=== PATIENT | male | born 1945 | race Caucasian/White ===

== ENCOUNTER → 2019-04-11 09:14 | Outpatient (CLI) | payer MEDICARE, OTHER, SELFPAY ==
[2016-11-19 09:01] VITALS: BMI 25.4
[2019-04-11 12:29] LABS: CRP < 2.90 mg/L (0.0-3.0); Erythrocyte Sedimentation Rate 7 mm/hr (0-20); Rheumatoid Factor < 10.0 IU/mL (<15)
[2019-04-11 12:42] LABS: Absolute Neutrophil Count 5.6 X10^3/uL (2.0-7.7); Basophil# 0.01 X10^3/uL; Basophil% 0.1 % (0-1); Eosinophil# 0.18 X10^3/uL; Eosinophils% 2.3 % (0-5); Hematocrit 47.5 % (40-54); Hemoglobin 15.1 g/dL (13.0-16.5); Lymphocyte % 17.9 % (19-41); Mean Corp Hgb Conc 31.8 g/dL (32-36); Mean Corpuscular Hgb 27.7 pg (27.0-32.0); Mean Corpuscular Volume 87.2 fL (80-94); Mean Platelet Vol. 10.9 fl (6.2-12.0); Monocyte# 0.62 X10^3/uL; Monocyte% 7.9 % (0-10); NRBC Flagged by Analyzer 0 % (0-5); Neutrophil # 5.58 X10^3/uL (2.7-7.7); Neutrophil % 71.5 % (47-70); Platelet Count 272 K/mm3 (150-450); RBC Distribution Width CV 13.4 % (11.6-14.6); RBC Distribution Width SD 42.7 fl (35.1-43.9); Red Blood Count 5.45 M/mm3 (4.6-6.2); White Blood Count 7.8 K/mm3 (4.4-11.0)
[2019-04-13 15:43] LABS: Anti-Nuclear Antibody Test Negative (.)
[2019-04-17 16:07] LABS: Cytoplasmic Ab (C-ANCA) <1:20 titer (Neg:<1:20); QNTFERON TB Mitogen Value > 10.00 IU/mL (.); QNTFERON TB1+ Ag Value 0.09 IU/mL (.); QNTFERON TB2+ Ag Value 0.08 IU/mL (.)
[2019-04-17 20:08] LABS: Angiotensin Convert Enzyme 44 U/L (14-82); HLA B27 Negative (.); Perinuclear Ab (P-ANCA) <1:20 titer (Neg:<1:20); QNTIFERON TB Positive Criteria Negative (Negative)
== END ==
PROVIDERS: Family Provider Family Medicine; PCP Family Medicine; Referring Provider Ophthalmology; Visit Provider Ophthalmology
DX: H15.099 Other scleritis, unspecified eye (principal)
CPT/HCPCS: 36415; 81374; 82164; 85025; 85652; 86038; 86140; 86256; 86431; 86480

== ENCOUNTER → 2023-12-01 | Outpatient (CLI) | payer MEDICARE, OTHER, SELFPAY ==
--- NOTE | 2023-12-01 13:34 | RAD_ITS ---
STUDY: X-RAY - SOFT TISSUE NECK REASON FOR EXAM: Male, 77 years old. hoarseness, difficulty swallowing TECHNIQUE: 2 view(s) of the neck were obtained. COMPARISON: None. FINDINGS: Normal visualized nasopharynx, oropharynx, hypopharynx. Normal epiglottis. Normal visualized subglottic tracheal air column. Normal prevertebral soft tissue structures. Normal visualized osseous structures. The soft tissue structures are unremarkable. RAD/Neck for Soft Tissue IMPRESSION: Normal x-ray soft tissue neck. Electronically Signed: George Bishop MD at 8:55 EDT ,
[2023-12-01 15:37] LABS: Erythrocyte Sedimentation Rate 11 mm/hr (0-20)
[2023-12-01 15:39] LABS: Absolute Lymphocyte Count 1.44 X10^3/uL (0.83-4.51); Absolute Neutrophil Count 7.4 X10^3/uL (2.0-7.7); Basophil# 0.01 X10^3/uL; Basophil% 0.1 % (0-1); Eosinophil# 0.24 X10^3/uL; Eosinophils% 2.4 % (0-5); Hematocrit 42.6 % (40-54); Hemoglobin 13.7 g/dL (13.0-16.5); Lymphocyte # 1.44 X10^3/ul (0.83-4.51); Lymphocyte % 14.2 % (19-41); Mean Corp Hgb Conc 32.2 g/dL (32-36); Mean Corpuscular Hgb 27.6 pg (27.0-32.0); Mean Corpuscular Volume 85.7 fL (80-94); Mean Platelet Vol. 11.6 fl (6.2-12.0); Monocyte# 1.01 X10^3/uL; NRBC Flagged by Analyzer 0 % (0-5); Neutrophil # 7.42 X10^3/uL (2.7-7.7); Platelet Count 258 K/mm3 (150-450); RBC Distribution Width CV 13.2 % (11.6-14.6); RBC Distribution Width SD 41.4 fl (35.1-43.9); Red Blood Count 4.97 M/mm3 (4.6-6.2); White Blood Count 10.2 K/mm3 (4.4-11.0)
[2023-12-01 15:50] LABS: ALB/GLOB Ratio 0.9 RATIO (0.9-2.4); AST(SGOT) 16 U/L (15-37); Alanine Aminotransfer ALT/SGPT 15 U/L (16-61); Albumin, Serum 3.5 g/dL (3.2-5.0); Alkaline Phosphatase 93 U/L (45-117); Anion Gap 3 (5-15); BUN 24 mg/dL (7-18); BUN/Creat Ratio 24.7 RATIO (10-20); Calcium,Total 9.4 mg/dL (8.5-10.1); Chloride 109 mmol/L (98-107); Creatinine, Serum 0.97 mg/dL (0.70-1.30); EST Glomerular Filtration Rate 79 mL/min (>60); Est Glom Filt Rate - Afr Amer 96 mL/min (>60); Glucose 99 mg/dL (74-106); Potassium 4.8 mmol/L (3.5-5.1); Protein, Total 7.5 g/dL (6.4-8.2); Sodium Level 139 mmol/L (136-145); Thyroid Stim Hormone (TSH) < 0.01 uIU/mL (0.358-3.74)
[2023-12-02 08:59] LABS: T4 Free Direct 2.47 ng/dL (0.76-1.46)
== END | disposition home or self-care (01) ==
PROVIDERS: PCP Family Medicine; Referring Provider Family Medicine; Visit Provider Family Medicine
DX: R49.0 Dysphonia (principal); Z13.29 Encounter for screening for other suspected endocrine disorder; R39.12 Poor urinary stream; R63.4 Abnormal weight loss
CPT/HCPCS: 36415; 70360; 80053; 84153; 84439; 84443; 85025; 85652

== ENCOUNTER → 2023-12-06 | Outpatient (CLI) | payer MEDICARE, OTHER, SELFPAY ==
[2023-12-08 08:13] LABS: Thyroid Peroxidase AB 10 IU/mL (0-34)
== END | disposition home or self-care (01) ==
LOC: MFPLAB 11:51
PROVIDERS: PCP Family Medicine; Visit Provider Family Medicine
DX: E05.90 Thyrotoxicosis, unspecified without thyrotoxic crisis or storm (principal)
CPT/HCPCS: 36415; 86376

== ENCOUNTER → 2023-12-08 | Outpatient (CLI) | payer MEDICARE, OTHER, SELFPAY ==
--- NOTE | 2023-12-08 13:50 | US_ITS ---
EXAM: US SOFT TISSUES HEAD AND NECK, THYROID CLINICAL INDICATION: THYROTOXICOSIS TECHNIQUE: Greyscale and color doppler imaging was performed of the thyroid gland. COMPARISON: No relevant prior studies available. FINDINGS: LEFT THYROID LOBE: Left lobe of the thyroid is diffusely heterogeneous. Solid nodule measuring 14 x 8 x 6 mm left lobe of the thyroid is hypoechoic, wider than tall, smooth, without echogenic foci. Solid nodule measuring 7 x 7 x 4 mm left lobe of the thyroid is hypoechoic, wider than tall, smooth, without echogenic foci. Solid nodule measuring 5 x 5 x 3 mm left lobe of the thyroid is isoechoic, wider than tall, smoothly, without echogenic foci. The left lobe of the thyroid lobe measures 4.6 x 1.9 x 1.5 cm. RIGHT THYROID LOBE: The right lobe of the thyroid is diffusely heterogeneous. Solid nodule measuring 8 x 7 x 5 mm right lobe of the thyroid is hypoechoic, wider than tall, smooth, without echogenic foci. Cystic nodule measuring 7 x 7 x 5 mm right lobe of the thyroid. Solid nodule measuring 11 x 10 x 7 mm right lobe of the thyroid is hypoechoic, wider than tall, smoothly, without echogenic foci. The right lobe of the thyroid lobe measures 4.7 x 2.5 x 1.8 cm. ISTHMUS: Unremarkable. No thyroid nodules are present. The isthmus measures 0.3 cm in thickness. US/Thyroid IMPRESSION: 1. Solid nodule measuring 8 x 7 x 5 mm right lobe of the thyroid is hypoechoic, wider than tall, smooth, without echogenic foci. TI-RADS points: 4. TI-RADS category: TR4. This nodule is moderately suspicious but no FNA or follow-up is necessary given the small size of this nodule. 2. Cystic nodule measuring 7 x 7 x 5 mm right lobe of the thyroid. TI-RADS points: 0. TI-RADS category: TR1. This nodule is benign and no FNA or follow-up is necessary. 3. Solid nodule measuring 11 x 10 x 7 mm right lobe of the thyroid is hypoechoic, wider than tall, smoothly, without echogenic foci. TI-RADS points: 4. TI-RADS category: TR4. This nodule is moderately suspicious. Recommend follow-up thyroid ultrasounds at 1, 2, 3 and 5 years. 4. Solid nodule measuring 14 x 8 x 6 mm left lobe of the thyroid is hypoechoic, wider than tall, smooth, without echogenic foci. TI-RADS points: 4. TI-RADS category: TR4. This nodule is moderately suspicious. Recommend follow-up thyroid ultrasounds at 1, 2, 3 and 5 years. 5. Solid nodule measuring 7 x 7 x 4 mm left lobe of the thyroid is hypoechoic, wider than tall, smooth, without echogenic foci. TI-RADS points: 4. TI-RADS category: TR4. This nodule is moderately suspicious but no FNA or follow-up is necessary given the small size of this nodule. 6. Solid nodule measuring 5 x 5 x 3 mm left lobe of the thyroid is isoechoic, wider than tall, smoothly, without echogenic foci. TI-RADS points: 3. TI-RADS category: TR3. This nodule is mildly suspicious but no FNA or follow-up is necessary given the small size of this nodule. Electronically Signed: Antonio Costa MD at 1:29 EDT ,
== END | disposition home or self-care (01) ==
LOC: US 13:47
PROVIDERS: PCP Family Medicine; Referring Provider Family Medicine; Visit Provider Family Medicine
DX: E05.90 Thyrotoxicosis, unspecified without thyrotoxic crisis or storm (principal)
CPT/HCPCS: 76536

== ENCOUNTER → 2023-12-14 | Outpatient (CLI) | payer MEDICARE, OTHER, SELFPAY ==
--- NOTE | 2023-12-14 08:50 | NM_ITS ---
CLINICAL: Male, 77 years old. Thyrotoxicosis, unspecified without thyrotoxic crisis or storm THYROID IMAGING STUDY TECHNIQUE: The patient was administered a 279 uCi I-123 capsule by mouth. COMPARISON STUDIES : NM - None. CR - Not available for review at this time. CT - Not available for review at this time. MR - Not available for review at this time. - 12/08/2023 FINDINGS: The 4 I-123 radioactive iodine thyroidal uptake was calculated to be 55.8% (normal 5 to 25 %). The 24-hour I-123 radioactive iodine thyroidal uptake was calculated to be 87.8% (normal 5 to 40 %). The I-123 thyroid scan demonstrates homogeneous radiopharmaceutical concentration throughout both lobes of a U-shaped thyroid gland. There are no colloidal parenchymal nodules noted in either lobe of the thyroid gland. NM/Thyroid Uptake Single or Mult IMPRESSION: Graves'' disease. Electronically Signed: George Bishop MD at 8:57 EDT ,
== END | disposition home or self-care (01) ==
LOC: NM 08:43
PROVIDERS: PCP Family Medicine; Referring Provider Family Medicine; Visit Provider Family Medicine
DX: E05.90 Thyrotoxicosis, unspecified without thyrotoxic crisis or storm (principal)
CPT/HCPCS: 78012; A9516

== ENCOUNTER → 2024-01-20 | Outpatient (CLI) | payer MEDICARE, OTHER, SELFPAY ==
[2024-01-20 18:17] LABS: Free T3 4.1 pg/mL (2.18-3.98); T4 Free Direct 1.39 ng/dL (0.76-1.46); Thyroid Stim Hormone (TSH) < 0.005 uIU/mL (0.358-3.740)
== END | disposition home or self-care (01) ==
PROVIDERS: PCP Family Medicine; Referring Provider Nurse Practitioner Family; Visit Provider Nurse Practitioner Family
DX: E05.00 Thyrotoxicosis with diffuse goiter without thyrotoxic crisis or storm (principal)
CPT/HCPCS: 36415; 84439; 84443; 84481

== ENCOUNTER → 2024-01-28 | Outpatient (CLI) | payer MEDICARE, OTHER, SELFPAY | END | disposition home or self-care (01) | LOC: LAB 16:34 | PROVIDERS: PCP Family Medicine; Referring Provider Surgery; Visit Provider Surgery | DX: E05.90 Thyrotoxicosis, unspecified without thyrotoxic crisis or storm (principal); E83.51 Hypocalcemia | CPT/HCPCS: 36415; 82306 ==

== ENCOUNTER → 2024-02-15 | Outpatient (CLI) | payer MEDICARE, OTHER, SELFPAY ==
[2024-02-15 11:27] LABS: ALB/GLOB Ratio 0.9 RATIO (0.9-2.4); AST(SGOT) 14 U/L (15-37); Alanine Aminotransfer ALT/SGPT 22 U/L (16-61); Albumin, Serum 3.5 g/dL (3.2-5.0); Alkaline Phosphatase 104 U/L (45-117); Anion Gap 7 (5-15); BUN 26 mg/dL (7-18); BUN/Creat Ratio 22.6 RATIO (10-20); Calcium,Total 9.5 mg/dL (8.5-10.1); Chloride 105 mmol/L (98-107); Creatinine, Serum 1.15 mg/dL (0.70-1.30); EST Glomerular Filtration Rate 65 mL/min (>60); Est Glom Filt Rate - Afr Amer 79 mL/min (>60); Free T3 3.2 pg/mL (2.18-3.98); Globulin 3.9 g/dL (2.2-4.2); Glucose 156 mg/dL (74-106); Potassium 3.5 mmol/L (3.5-5.1); Protein, Total 7.4 g/dL (6.4-8.2); Sodium Level 139 mmol/L (136-145); T4 Free Direct 0.99 ng/dL (0.76-1.46); Thyroid Stim Hormone (TSH) < 0.005 uIU/mL (0.358-3.740)
== END | disposition home or self-care (01) ==
LOC: MTLAB 08:44
PROVIDERS: PCP Family Medicine; Referring Provider Nurse Practitioner Family; Visit Provider Nurse Practitioner Family
DX: I10 Essential (primary) hypertension (principal); E05.90 Thyrotoxicosis, unspecified without thyrotoxic crisis or storm
CPT/HCPCS: 36415; 80053; 84439; 84443; 84481

== ENCOUNTER 2024-03-21 12:07 | Observation (INO) | payer MEDICARE, OTHER, SELFPAY ==
--- NOTE | 2024-03-09 13:16 | EKG12_ITS ---
Test Reason : PREOP Blood Pressure : */* mmHG Vent. Rate : 71 BPM Atrial Rate : 71 BPM P-R Int : 178 ms QRS Dur : 94 ms QT Int : 380 ms P-R-T Axes : 9 25 47 degrees QTcB Int : 412 ms Normal sinus rhythm Normal ECG Confirmed by Anotnio Morelos ([id number]), primer expeditor and drier SHERRY OWUSU ([id number]) on 03/10/2024 8:21:43 AM Referred By: Antonio Bhatti Confirmed By: Antonio Moreols
[2024-03-21] VITALS (14 sets, daily range): BP systolic 132–156; BP diastolic 60–82; PULSE 69–88; RESP 12–18; TEMP 36.4–37.2; O2SAT 95–100; BMI 25.9
[2024-03-21] MEDS: Lactated Ringers 1,000 ML 15 ML IV (06:22)
--- NOTE | 2024-03-21 06:57 | PCM.HP.BLA ---
History and Physical Date of Admission: 03/21/24 Date of Service: 01/28/24 MR#: [id number] Acct: [id number] Name: HA ADAIR Rep #: [id number] : 1945 Provider: Dr. Antonio Bhatti MD Age/Sex: 78/M Location: [facility] Status: Signed Intake Vital Signs 01/05/2409:43 01/27/2415:24 01/27/2415:24 Height 5 ft 10 in 5 ft 10 in Weight: 173 lb 177 lb BMI 24.8 25.4 BP 166/67 H 209/75 H 195/74 H Blood Pressure Location Lt brachial Rt brachial Lt brachial Position Sitting Sitting Sitting Respiration 16 Pulse 68 57 L Pulse Source Monitor Pulse Oximetry (%) 98 100 Oxygen Delivery Method room air Intake Visit Reasons: THYROID NODULES Chief Complaint: establish care- hyperthyroid Manager Social Media Required: No Is patient in pain?: No Allergies No Known Allergies Allergy (Verified 01/28/24 15:25) Medications ?Medication ?Instructions ?Recorded ?Confirmed ?Type difluprednate 0.05 % eye drops 1 drp ophthalmic (eye) Q OTHER DAY 01/06/24 01/28/24 History dorzolamide 2 % eye drops 1 drp ophthalmic (eye) Q OTHER DAY 01/06/24 01/28/24 History doxycycline hyclate 50 mg capsule 50 mg PO QDAY 01/06/24 01/28/24 History metoprolol succinate 25 mg 25 mg PO QDAY 01/06/24 01/28/24 History tablet,extended release 24 hr saw palm 50 mg-pyg 20 mg-nettl 25 1 cap PO DAILY 01/06/24 01/28/24 History mg-pump 100 cy-gudk-qy-Zn-Cu capsule (Prostate Control) timolol maleate 0.5 % eye drops 1 drp ophthalmic (eye) BID 01/06/24 01/28/24 History Have you fallen in the past year?: No PFSH Medical History (Updated 01/30/24 @ 11:[address] Antonio Bhatti MD) Hyperthyroidism Losing weight Essential (primary) hypertension Graves disease High blood pressure History of skin cancer Surgical History (Updated 01/28/24 @ 15:23 by Ximena Tapia) Soft tissue sarcoma S/P cataract extraction Family History (Updated 01/28/24 @ 15:23 by Ximena Tapia) Brother Myocardial infarctionFather CVA (cerebral vascular accident) Social History (Updated 01/28/24 @ 15:24 by Xmiena Tapia) Smoking Status: Former smoker alcohol intake: current HPI HPI HPI: Patient is a 78-year-old male who presents for evaluation of a new diagnosis of Graves' disease. They are referred for surgical consultation from Dr. Arriola, PCP and Bee Garcia NP of endocrinology. This was discovered after patient had described unintentional weight loss over the preceding year. He estimates this weight loss totaled approximately 16 pounds, but he is pleased to share that he has regained approximately 3 pounds of it since being started on methimazole. They also do report new difficulty with swallowing. Mr. Adair shares that this is strictly in response to ingestion of solid foods. They do not complain of a new cough. They do appreciate new voice changes which they characterized as a raspy quality and state that there has been a chronic element to this issue that was made acutely worse over the last year. They do not have a history of snoring/sleep apnea. There is some history of recent fatigue. They also do have a history of heat intolerance. He shares that he is hot all the time and finds himself at odds with his who is cold all the time. Other symptoms include: Some hypertension and blurry vision. They do not have a family history of thyroid disorders or endocrinopathies. There is no history of prior radiation exposure. Previous work-up has included thyroid ultrasound. This study was performed on 12/08/2023 and showed a right thyroid lobe measuring 4.7 x 2.5 x 1.8 cm. Within this lobe radiology identified 3 nodule/cysts measuring between 5 and 11 mm in greatest dimension. The left thyroid lobe measured 4.6 x 1.9 x 1.5 cm. Within this lobe radiology identified a nodule measuring 1.4 x 0.8 x 0.6 cm with a solid and hypoechoic appearance given in an overall TI-RADS rating of 4. 2 additional subcentimeter nodules were also described. An FNA has not been recommended, nor been performed. Other tests include: TSH: Less than 0.005, free T3: 4.1, free T4: 1.39 (01/20/2024) Regarding patient's hypertension, he shares that his blood pressure normally resides around 140-150/mid 60s but it is checked and found to be between 190-200 millimeters mercury systolic today.. ROS General General: Yes weight change and fatigue; No appetite, colon cancer, breast cancer or weakness HEENT HEENT: Yes difficulty swallowing; No eye injury, eye surgery, swollen glands or hoarseness Endo Endocrine: Yes thyroid disease; No diabetes mellitus, thyroid cancer, Hair loss, heat intolerance or cold intolerance Skin Skin: No rash or changing moles Breast Breast: No left breast lump, right breast lump, nipple discharge, breast pain, abnormal mammogram, abnormal US or breast enlargement Musc Musculoskeletal: No back problems, arthritis, rheumatoid arthritis, gout or joint pain Cardio Cardiovascular: Yes high blood pressure; No murmur, pacemaker, heart disease, atrial fibrillation, heart attack, heart stent, palpitations, shortness of breat with exertion or chest pain Psych Psychiatric: No depression, anxiety or hearing voices Resp Respiratory: No shortness of breath, No sleep apnea, No cough, No COPD, No asthma, No emphysema and No wheezing Gastro Gastrointestinal: No abdominal pain, No nausea or vomiting, No diarrhea, No constipation, No blood in stool, Yes acid reflux, No hemorrhoids, No ulcers, No gallbladder problem and No black,tarry stools Alpesh Hematologic: No blood thinners, No blood disorders, No bleeding, No anemia and No blood clots Neuro Neurologic: No system reviewed and no additional complaints, except as documented, No as per HPI, No abnormal gait, No abnormal hearing, No abnormal movements, No abnormal speech, No behavioral changes, No burning sensations, No confusion, No convulsions, No disequilibrium, No dizziness, No localized weakness, No frequent falls, No headache(s), No lack of coordination, No loss of vision, No memory loss, No numbness, No other visual disturbances, No radicular pain, No restless legs, No sensory deficit, No syncope, No tingling, No tremor(s), No weakness and No other Exam Const General: cooperative and comfortable Orientation: alert, awake and oriented x3 Other: Remarkably mobile for stated age Neck Other: Mild nodularity appreciated the patient's lower neck over the thyroid. No lymphadenopathy appreciated. Extrem Other: Tremor observed in patient's left upper extremity only Assessment and Plan Assessment and Plan (1) Graves disease: Status: Chronic Comment: Patient is a 78-year-old male with recent diagnosis of Graves' disease and is remarkably symptomatic from this condition. In fact, his review of systems is almost leigh positive and consistent with this diagnosis. He is reporting some favorable response to methimazole but has been counseled on medical management versus surgical management of this disease process by endocrinology. I took up this discussion during her visit today and shared that a do feel he would make an ideal candidate for surgical management of this disease process-in no small part owing to his remarkable health that is present age. I shared that surgery would have an edge over medical management of this condition?particularly with his reports of some ophthalmologic changes. Couched within this recommendation I did also describe the risks of surgery and the risks of surgery specific to operating on Graves' goiters. I detailed increased risk for hypocalcemia and bleeding. I shared that I would like to ensure his vitamin D level was within normal limits before proceeding to surgery. I also shared that I would like for him to complete a round of Lugol's or SSKI drops prior to proceeding with surgery to minimize his risk for bleeding. Overall, we had a nice discussion in the [place]'s appear inclined to consider surgery. I stressed that we would need to first examine Mr. Adair's vocal cord mobility with formal laryngoscopy and would need to obtain appropriate control of his blood pressure as his readings today would be prohibitive for proceeding with surgery. They expressed understanding of this information as well. Plan: ? Continue methimazole per endocrinology ? Request SSKI dosing by endocrinology if patient elects for surgery (2) High blood pressure: Status: Chronic Qualifiers: Hypertension type: unspecified Qualified Code(s): I10 - Essential (primary) hypertension Comment: Patient with exceptionally high blood pressure today despite reported use of beta-blockade. Would question if transition to propranolol may be beneficial in this case as a better beta-2 antagonist. Will confer with endocrinology. (3) Hoarseness of voice: Status: Acute Comment: Patient with progressive hoarseness of voice. Overall his thyroid dimensions are consistent with goiter but not markedly significant that I would have strong suspicion for compression phenomenon. Therefore, advocate for formal laryngoscopy. Plan: ? ENT referral for laryngoscopy Orders: Orders Vitamin D,25 Hydroxy 01/28/24 E05.90 - Thyrotoxicosis, unspecified without thyrotoxic crisis or storm Referrals Ears, Nose and Throat E05.00 - Thyrotoxicosis with diffuse goiter without thyrotoxic crisis or storm, E05.90 - Thyrotoxicosis, unspecified without thyrotoxic crisis or storm I have examined the patient the following changes are noted: Patient presents today with his . He confirms that his blood pressure is markedly improved. He suggests that he is averaging in the 130s over 80s at home. This morning's blood pressure is 150s over 70s. He explains that that he is a bit anxious about his surgery. He does also confirm that he completed a 10-day course of potassium of iodide thyroid suppression. Lastly we discussed that he completed formal laryngoscopy with ENT Ray is found to have normal vocal cord function and his hoarseness has been explained by some postnasal drip. Regarding today's plans I clarified that we are planning for a total thyroidectomy with intraoperative nerve monitoring. Consents were confirmed. Postoperatively patient will be admitted for observation in the Medr unit to monitor calcium and for any development of hematoma. All questions were answered from patient and his spouse. Will now proceed to the operating room for total thyroidectomy and intraoperative nerve monitoring
--- NOTE | 2024-03-21 06:59 | PRE.ANES_ITS ---
ASA Classification* ASA Classification ASA Classification: 2 Assessment & Plan Anesthesia* Anesthesia Assessment Anesthesia Assessment: Discussed sedation and/or anesthesia options, risks, benefits, and alternatives with patient/parents/legal guardian/POA. Questions invited. The patient/parents/legal guardian/POA seems to understand and agrees to proceed with anesthesia plan. Reviewed the physical assessment, medical history, allergy history and patient home medications list prior to surgery/procedure/anesthetic and documented any changes. Performed airway and anesthesia risk assessments. Anesthesia Type Anesthesia Type: General Anesthesia Focused Assessment* Temperature: 98.5 F Pulse Rate: 69 Blood Pressure: 154/73 Respiratory Rate: 16 Pulse Ox: 96 Airway Assessment Mouth opens: >3 cm Mallampati Score: II Focused Labs Anesthesia Preop lab: CBC WBC 10.2 K/mm3 (4.4-11.0) 12/01/23 12:08 RBC 4.97 M/mm3 (4.6-6.2) 12/01/23 12:08 Hgb 13.7 g/dL (13.0-16.5) 12/01/23 12:08 Hct 42.6 % (40-54) 12/01/23 12:08 Plt Count 258 K/mm3 (150-450) 12/01/23 12:08 CHEMISTRY Potassium 3.5 mmol/L (3.5-5.1) 02/15/24 08:47 Sodium 139 mmol/L (136-145) 02/15/24 08:47 BUN 26 mg/dL (7-18) H 02/15/24 08:47 Creatinine 1.15 mg/dL (0.70-1.30) 02/15/24 08:47 Glucose 156 mg/dL (74-106) H 02/15/24 08:47 TSH < 0.005 uIU/mL (0.358-3.740) L 02/15/24 08:47 COAG Pre-Assessment Diagnosis/Proposed Procedure Planned Operative Procedure(s): Total Thyroidectomy w/IONM Anesthesia History Anesthesia History - regional geodetic advisor: Anesthesia History - regional geodetic advisor Hx Hospitalization No 03/08/24 09:19 Any Problems With Anesthesia No 03/08/24 09:19 Cholinesterase deficiency No 03/08/24 09:19 You/Your Family Experience No 03/08/24 09:19 fever (hyperthermia) with Relationship Recent Exposure to Contagious No 03/21/24 06:14 Disease Does patient have nerve No 03/08/24 09:19 stimulator Patient instructed to have device shut off --Does patient have Pacemaker No 03/21/24 06:14 or ICD? When Was Last Pacemaker Check QUESTION #4 FULL TEXT: You/Your Family Experience fever (hyperthermia) with Anesthesia Last Oral Intake Last Oral intake: Last Oral Intake NPO since 05:00 03/21/24 06:14 Meds taken in AM with sips of Yes 03/21/24 06:14 water? Meds patient instructed to see mar 03/21/24 06:14 take am of surgery PONV PONV - regional geodetic advisor: PONV - regional geodetic advisor Female Yes 03/08/24 09:19 HX of Motion Sickness No 03/08/24 09:19 HX of N/V After Surgery No 03/08/24 09:19 Non-Smoker Yes 03/08/24 09:19 Duration of Surgery greater Yes 03/08/24 09:19 than 60 minutes Number of Risk Factors 3 03/08/24 09:19 PONV Score Moderate Risk 03/08/24 09:19 Height & Weight Height & Weight: Anesthesia: Height & Weight Height 5 ft 10 in 03/21/24 06:14 Weight: 82.1 kg 03/21/24 06:14 Body Mass Index (BMI) 25.9 03/21/24 06:14 Respiratory Assessment Respiratory Assessment - regional geodetic advisor: Respiratory Tract Infection Hx - regional geodetic advisor Hx Respiratory Tract Infection No 03/08/24 09:19 STOP Sleep Apnea STOP Sleep Apnea - regional geodetic advisor: STOP Sleep Apnea - regional geodetic advisor Hx Hypertension Yes: CONTROLLED WITH MED 03/08/24 09:19 Hx Sleep Apnea No 03/08/24 09:19 CPAP BIPAP Do you snore loudly (louder No 03/08/24 09:19 than talking or can be heard Do you often feel tired/ No 03/08/24 09:19 fatigued/ sleepy during daytime? Has anyone observed you stop No 03/08/24 09:19 breathing during sleep? STOP Results Negative 03/08/24 09:19 QUESTION #5 FULL TEXT : Do you snore loudly (louder than talking or can be heard through closed doors)? Tobacco Use History Tobacco Use History - regional geodetic advisor: Tobacco Use History - regional geodetic advisor Tobacco Use Smoking Status Former smoker 03/08/24 09:19 Hx Tobacco Use No 03/08/24 09:19 Years Smoking Packs Smoked per Day Smoking Cessation Date was No - quit smoking greater 03/08/24 09:19 within the last 15 years than 15 years ago Hx Smoking Cessation Date 05/03/82 03/08/24 09:19 Hx Smoking Cessation Counseling Hematologic Medial History Hematologic Hx - regional geodetic advisor: Hematologic Medical Hx - documentation writer Hx of Blood Transfusion No 03/08/24 09:19 Hx of Transfusion in last 3 No 03/08/24 09:19 Months Date of Last Transfusion (if within last 3 months) Ever experience any problems No 03/08/24 09:19 with transfusion(s)? Specify any problems Hx of Preganancy in last 3 N/A 03/08/24 09:19 Months Nurse Filling Out Transfusion NBUCHER 03/08/24 09:19 & Questions: Date: 03/08/24 03/08/24 09:19 Time: 09:21 03/08/24 09:19 Patient unable to answer at this time (ie. confused, unrespo /Reproduction History /Reproductive History - regional geodetic advisor: /Reproductive Hx- regional geodetic advisor Hx Now No 03/08/24 09:19 Gestational Age (in weeks): EDC: Hx Hx Para Hx Section SAB No 03/08/24 09:19 Active Medications Active Medications: Current Medications Generic Name Dose Route Start Last Admin Trade Name Freq PRN Reason Stop Dose Admin Lactated Ringer's 1,000 mls @ 15 mls/hr 03/21/24 06:00 03/21/24 06:22 IV 03/24/24 00:39 15 mls/hr .Q48H MARYAM Administration Protocol PFSH Medical History Loss of hearing Wears glasses Wears dentures Cancer Thyroid disease BPH (benign prostatic hyperplasia) Prostate disease Difficulty swallowing Gastric reflux Former smoker High blood pressure Graves disease History of skin cancer Essential (primary) hypertension Losing weight Hyperthyroidism Home Medications ?Medication ?Instructions ?Recorded ?Last Taken ?Type difluprednate 0.05 % eye drops 1 drp ophthalmic (eye) Q OTHER DAY 01/06/24 Unknown History dorzolamide 2 % eye drops 1 drp ophthalmic (eye) Q OTHER DAY 01/06/24 Unknown History doxycycline hyclate 50 mg capsule 50 mg PO QDAY 01/06/24 Unknown History saw palm 50 mg-pyg 20 mg-nettl 25 1 cap PO DAILY 01/06/24 Unknown History mg-pump 100 eo-hbxe-ps-Zn-Cu capsule (Prostate Control) timolol maleate 0.5 % eye drops 1 drp ophthalmic (eye) BID 01/06/24 Unknown History hydrochlorothiazide 12.5 mg tablet 12.5 mg PO QDAY #30 tabs 01/31/24 Unknown Rx metoprolol succinate 25 mg 25 mg PO QDAY #30 tabs 01/31/24 03/21/24 05:00 Rx tablet,extended release 24 hr methimazole 10 mg tablet 10 mg PO QDAY 02/15/24 Unknown History losartan 25 mg tablet 25 mg PO QDAY #90 tabs 02/17/24 03/21/24 Rx levothyroxine 100 mcg tablet 100 mcg PO QDAY #90 tabs 03/07/24 Unknown Rx Allergy/AdvReac Type Severity Reaction Status Date / Time No Known Allergies Allergy Verified 03/21/24 06:12 Family History Brother Myocardial infarction Father CVA (cerebral vascular accident) Surgical History Soft tissue sarcoma S/P cataract extraction Social History Smoking Status: Former smoker alcohol intake: current Review of Systems (Anesthesia) ROS Narrative System reviewed and no additional complaints, except as documented.
--- NOTE | 2024-03-21 07:30 | THYROID_PTH ---
PATIENT: HA LEES LOC: [facility] U#:[id number] AGE/SX: 78/M ROOM: UT313 RE03/21/[address]: Dr. Antonio Bhatti MD : 1945 BED: 1 DIS: 03/22/2024 SPEC #: [id number] RECD: 03/21/24 14:25 STATUS: VIDYA TURK #: [id number] GERHARD: 03/21/24 07:[address]: Antonio Bhatti DEPT: SURGICAL PATHOLOGY RECD BY: Marlen Oconnor ENTERED: 03/22/24 09:19 SP TYPE: THYROID OTHR DR: Dr. Christiano Arriola MD Tissues: Thyroid gland, NOS Procedures: Surgery Specimen Level V HEADER OPERATION: Total thyroidectomy with IONM PRE-OP DIAGNOSIS: Graves disease TISSUE SUBMITTED: Thyroid * stitch rod right superior pole* MICROSCOPIC DIAGNOSIS Thyroid, total thyroidectomy: Multinodular goiter. 03/23/2024 MICROSCOPIC DESCRIPTION Slides are reviewed. GROSS DESCRIPTION Received in fixative is one container labeled with the patient's name and designated Thyroid. The specimen consists of a total thyroidectomy specimen. The specimen is oriented by a stitch on the superior pole of right lobe. The right lobe measures 4.6 x 2.2 x 1.8cm and the isthmus portion measures 4.9 x 1.4 x 0.5cm and the left lobe of thyroid measures 4.7 x 1.8 x 2.1cm. The entire gland weighs 23.2gm. The posterior surface of the entire gland is inked black. The anterior surface of the right lobe is inked orange, anterior surface of the isthmus is inked red, anterior surface of left thyroid lobe is inked green. Both lobes are serially sectioned from superior to inferior and reveals multinodular cut surfaces. Resistor Winder sections are submitted as follows: 1-5- section of right lobe, 6-7- sections of isthmus, 8-12- section of left lobe of thyroid. 03/22/2024 TC:5 CPT: 75989
[2024-03-21] MEDS: Bupivacaine 0.25% 30 ML Vial (12:05)
--- NOTE | 2024-03-21 12:12 | PCM.OPRPT ---
Operative Report (Standard) Operative Information Surgery/Procedure Performed: Total thyroidectomy with intraoperative nerve monitoring Surgeon: Antonio Bhatti Date of Procedure: 03/21/24 Procedure Start Time: 08:10 Procedure Stop Time: 12:09 Pre-Operative Diagnosis: Graves' disease Post-Operative Diagnosis: Same Select all DRAINS/GRAFTS/IMPLANTS that apply: None Type of Anesthesia: General/Supplemental Estimated Blood Loss: 30 Specimen collected: Yes Description of specimen(s) removed: Total thyroidectomy with stitch marking right superior pole Description of surgery: After appropriate identification in the preoperative holding area, the patient was brought to the operating room where he was positioned supine with arms tucked taking care to pad the ulnar nerve bilaterally. Induction of general endotracheal anesthetic was begun and a NIMS tube was placed under glidescope view to confirm coaptation with the vocal cords anteriorly. Tube was then secured and the patient was positioned with a shoulder roll so that his head was in extension but supported. The Nims electrodes were placed and connected to the monitor. We had appropriate resistance showing on the monitor and tapping at the level of the cricoid produce a graphical representation of the impulse on the monitor. Patient's neck was then prepped and draped in usual sterile fashion and a formal timeout was conducted with those present. The lowest skin fold to the sternal notch was selected for incision site (this resided approximately 1 and half fingerbreadths cephalad to the notch). An incision was extended for 2.5 cm on either side of midline. Electrocautery was used to deepen this incision through the level of the platysma. Subplatysmal flaps were raised with the use of electrocautery and blunt dissection. The strap muscles were then divided along the medial raphe bringing us down to the level of the thyroid. Capsular attachments to the thyroid were divided with the use of LigaSure. Retractors were placed providing visualization of the superior pole of the left lobe of the thyroid. Patient had a number of accessory vessels and a higher than usual superior pole. The vessels of the superior pole were sequentially ligated with the use of the LigaSure device. We then moved inferiorly and divided the middle thyroid attachments as well as brush to side the attachments from the strap muscles to the lateral aspect of the left thyroid lobe. Moving further inferiorly I divided the inferior polar vessels with LigaSure. I was careful to take these vessels right against the thyroid capsule so as not to compromise the perfusion to the left inferior parathyroid and to preserve it intact. While retracting the thyroid medially, there is significant posterior extension of a tubercle of Zuckerkandl that required meticulous blunt dissection to avoid inadvertent injury to the recurrent laryngeal nerve. The nerve had an excellent signal from the Nims monitor and blunt dissection parallel to the presumed course of the recurrent laryngeal nerve was used to expose the tracheoesophageal groove. Here, again, I encountered a positive signal for the left recurrent laryngeal nerve and was shortly thereafter able to visualize the nerve. The nerve positively identified, I began carefully dissecting off the remaining tracheal attachments around the area of the nerve. A thyroid remnant was established in the area of the ligament of Rahman with a minute amount of thyroid tissue which was secured with 4-0 silk ligatures. After confirming a intact nerve signal, the specimen side was then sharply amputated. Once the left thyroid lobe was elevated at least 2 to 3 mm anterior to the nerve insertion point, electrocautery was used to remove the isthmus from the anterior surface of the trachea. We then moved to removal of the right thyroid lobe with a similar technique taking care to remove the strap muscles from their capsular attachments to the lobe. The superior pole vessels were taken in like fashion with use of LigaSure energy. Shortly after taking the superior pole vessels I encountered what I felt represented the right superior parathyroid gland located deep to the superior pole and this was carefully dissected to preserve its vascular pedicle. The inferior pole vessels and middle thyroid vein were then divided with LigaSure. There was a similar posterior extension of the thyroid gland with a tubercle of Zuckerkandl-but not as significant as that found on the left side. As the thyroid was elevated and medialized, I continued vigilance for the recurrent laryngeal nerve. I eventually was able to get a signal from the nerve monitor that the nerve was close, and then was able to visualize the nerve. Once again, A thyroid remnant was established with passage of a 4-0 silk ligature. Prior to division of any tissue, I again tested the nerve and found a positive signal. This permitted us a several millimeter margin between the thyroid gland and the course of the nerve so the remainder of the thyroid gland was removed with electrocautery taking care to protect the trachea below. Superiorly and anteriorly I identified a moderately large pyramidal lobe which was also dissected free of the anterior surface of the thyroid cartilage. Our final specimen was marked with a 3-0 Vicryl stitch through the right upper pole and passed off the field for pathologic processing. Both surgical cavities were inspected for hemostasis; closer to the nerve on the left there was some additional oozing and Surgicel hemostatic agent was placed bilaterally while pressure was applied. Once this pressure was relieved, there was persistent bleeding on the left with a minute vessel visibly bleeding so I confirmed the position of a recurrent laryngeal nerve and then performed a stick tie of this area using a 4-0 Vicryl suture. Following this intervention hemostasis was obtained. The surgical cavity was completely inspected and selective electrocautery was used in several places of the inferior pole but hemostasis was largely intact. Both cavities were then inspected for their contents and I was able to grossly identify both the superior and inferior parathyroid glands on the right as well as a functionally (tested by Nims) intact right recurrent laryngeal nerve. On the left there was a clearly viable superior and inferior parathyroid gland and, again, the recurrent laryngeal nerve signal was intact by our Nims monitor. New pieces of Surgicel hemostatic agent were placed into the surgical cavities and monitored but remained white and dry. Satisfied with this result, the strap muscles were closed with a running 3-0 Vicryl stitch leaving a small gap at the inferior aspect of the suture line. During this closure I found need to apply bipolar energy to a anterior jugular vein that could not be avoided with our suture line and resulted in some minor bleeding. After application of LigaSure no further bleeding was detected. The strap muscles closed, then the platysmal flaps were closed with interrupted 3-0 Vicryl. Some additional local anesthetic was infiltrated throughout the dermis and the skin was closed in a subcuticular fashion using 4-0 Monocryl. Steri-Strips were applied. Telfa and Tegaderm were used as a dressing. The patient was then awakened from anesthetic without event and was taken to PACU for ongoing recovery. Surgical Findings: ? Grossly intact superior and inferior parathyroid glands bilaterally ? Visually and functionally (per Nims) intact bilateral recurrent laryngeal nerves ? Moderately large pyramidal lobe kept intact with thyroid specimen In Home Aide magneto repairer: Yes Deoiling Machine Operator: Angela Bueno Tasks completed by airplane first officer: Opening & closing, Hemostasis: Electrocautery and Retracting Complications Complications: No Admit VTE Documentation VTE Present on Admission: Yes VTE Mechan Device Prophylaxis: SCD's Procedures Endocrine CF Procedures [id number]: [id number] Removal of thyroid
--- NOTE | 2024-03-21 12:21 | PCM.POST.ANE ---
Anesthesia: Postop Eval I Current Vital Signs Temperature: 97.9 F Pulse Rate: 79 Blood Pressure: 142/72 Respiratory Rate: 12 Pulse Ox: 100 Oxygen Delivery Method: Simple Mask Oxygen Flow Rate (L/min): 6 Assessment Airway patent: Yes Spontaneous unlabored respirations: Yes Mental status: Awake nausea: No Vomiting: No Anesthesia Complication: No Fluid Hydration Crystalloid volume administer (ml): 1,900 Total IV fluid infused: 1,900 Progress Note Anesthesia document: Postop Eval 1 completed: Yes
[2024-03-21 12:49] LABS: PTHIN 31.4 pg/mL (18.4-80.1)
--- NOTE | 2024-03-21 14:10 | SUR.PHASEI ---
1340: CALLED FOR TRANSPORT
--- NOTE | 2024-03-21 16:03 | POSTOPAN2_ITS ---
Anesthesia Postop Eval I Sum Postop Eval Completion status Anesthesia document: Postop Eval 1 completed: Yes Anesthesia Postop Eval I Summary Anesthesia Postop Eval I Summary: Anesthesia Postop Eval I: Assessment Summary Airway patent Yes 03/21/24 12:22 BOTTLE CAPPING MACHINE OPERATOR.[email or web address] Spontaneous unlabored Yes 03/21/24 12:22 BOTTLE CAPPING MACHINE OPERATOR.[email or web address] respirations Mental status Awake 03/21/24 12:22 BOTTLE CAPPING MACHINE OPERATOR.HBARR nausea No 03/21/24 12:22 BOTTLE CAPPING MACHINE OPERATOR.HBARR Vomiting No 03/21/24 12:22 BOTTLE CAPPING MACHINE OPERATOR.HBARR Anesthesia Postop Eval I: Fluid Summary Crystalloid volume administer 1,900 03/21/24 12:22 BOTTLE CAPPING MACHINE OPERATOR.HBARR (ml) Colloids volume administered ( ml) Blood Product volume administered (ml) Total IV fluid infused 1,900 03/21/24 12:22 BOTTLE CAPPING MACHINE OPERATOR.HBARR Anesthesia Postop Eval I: Summary Notes Anesthesia Complication No 03/21/24 12:22 BOTTLE CAPPING MACHINE OPERATOR.HBARR Anesthesia Complication Comment: Post-operative progress note Anesthesia: Postop Eval II Evaluation Mental status: Awake and Calm Pain Level: 0 nausea: No Vomiting: No Complications Anesthesia Complication: No
--- NOTE | 2024-03-21 16:03 | PCM.POSTANE2 ---
Anesthesia Postop Eval I Sum Postop Eval Completion status Anesthesia document: Postop Eval 1 completed: Yes Anesthesia Postop Eval I Summary Anesthesia Postop Eval I Summary: Anesthesia Postop Eval I: Assessment Summary Airway patent Yes 03/21/24 12:22 [email or web address] Spontaneous unlabored Yes 03/21/24 12:22 CALENDER [email or web address] respirations Mental status Awake 03/21/24 12:22 CALENDER [email or web address] nausea No 03/21/24 12:22 CALENDER RUNNER.[email or web address] Vomiting No 03/21/24 12:22 CALENDER [email or web address] Anesthesia Postop Eval I: Fluid Summary Crystalloid volume administer 1,900 03/21/24 12:22 CALENDER [email or web address] (ml) Colloids volume administered ( ml) Blood Product volume administered (ml) Total IV fluid infused 1,900 03/21/24 12:22 CALENDER [email or web address] Anesthesia Postop Eval I: Summary Notes Anesthesia Complication No 03/21/24 12:22 CALENDER [email or web address].[email or web address] Anesthesia Complication Comment: Post-operative progress note Anesthesia: Postop Eval II Evaluation Mental status: Awake and Calm Pain Level: 0 nausea: No Vomiting: No Complications Anesthesia Complication: No
[2024-03-21] MEDS: Calcium Carb/Vitamin D 1 TABLET Tablet PO (16:04)
[2024-03-21] MEDS: Timolol 0.5% 5ML OPTH.BTL 1 DRP OPHTHALMIC (22:10)
[2024-03-22] MEDS: Levothyroxine 125 MCG Tablet PO (04:23)
[2024-03-22 04:24] VITALS: BP 132/54; PULSE 74; RESP 14; TEMP 36.8; O2SAT 98
[2024-03-22 05:20] LABS: Calcium,Total 8.8 mg/dL (8.5-10.1); PTHIN 20.9 pg/mL (18.4-80.1)
[2024-03-22 07:47] VITALS: BP 140/61; PULSE 70; RESP 18; TEMP 36.6; O2SAT 93
--- NOTE | 2024-03-22 07:53 | DCINST_ITS ---
Discharge Instructions Diet Discharge Diet: No restrictions (However recommend a liquid to soft diet initially postoperatively) Activity Discharge Activity: May Not Drive (While it remains difficult to check blind spots quickly) May shower in (days): 2 Ice area for (Minutes): 20 Lifting Restrictions: No lifting greater than 15 pounds for 2 weeks after surgery Dressing / Incision Call your doctor if your incision/area has: Continuous Slow Oozing, Sudden Increased Bleeding, Increased Pain/ Swelling, Increased Redness and Swelling at the incision site Call your doctor if you observe: Numbness or Tingling Remove Dressing in: 1 day (Please leave Steri-Strips intact until they fall off spontaneously or are taken off at your follow-up visit) Cleanse incision/area with: Soap & Water Follow Up Care Please Follow Up With: Antonio Bhatti MD When: 10-14 days postop Test Results: Test results from this visit will be discussed in further detail at your follow- up appointment, if applicable. Discharge Plan Admission Admit Date/Time: 03/21/24 12:07 Primary Reason for Your Visit: s/p total thyroidectomy Attending Provider: Atnonio Bhatti Primary Care Provider: Christiano Arriola Instructions Additional Instructions / Restrictions: Please keep a log of blood pressures and report to first postop visit with this record. Thank you Discharge Orders/Prescriptions Prescriptions: New calcium carbonate-vitamin D3 [Oyster Shell Calcium-Vit D3] 500 mg-5 mcg (200 unit) Tablet 1 tab PO TIDCM 18 Days Qty: 54 0RF Continued doxycycline hyclate 50 mg capsule 50 mg PO QDAY difluprednate 0.05 % drops 1 drp ophthalmic (eye) Q OTHER DAY dorzolamide 2 % drops 1 drp ophthalmic (eye) Q OTHER DAY Patient Comments: [NO ORIGINAL SIG] timolol maleate 0.5 % drops 1 drp ophthalmic (eye) BID Patient Comments: [NO ORIGINAL SIG] Prostate Control [id number] mg capsule 1 cap PO DAILY metoprolol succinate 25 mg tablet extended release 24 hr 25 mg PO QDAY Qty: 30 5RF hydrochlorothiazide 12.5 mg tablet 12.5 mg PO QDAY Qty: 30 5RF losartan 25 mg tablet 25 mg PO QDAY Qty: 90 1RF levothyroxine 100 mcg tablet 100 mcg PO QDAY Qty: 90 1RF Rx Instructions: start after thyroid surgery Discontinued methimazole 10 mg tablet 10 mg PO QDAY Other Ambulatory Orders: 12 Lead EKG (Routine) Location: None Selected Ordered By: Dr. Jorge Griffith Referrals / Follow Up: Christiano Arriola MD [Primary Care Provider] - Disposition Disposition (needs filled in before D/C Order can be placed): Home, Self Care
[2024-03-22] MEDS: Calcium Carb/Vitamin D 1 TABLET Tablet PO (07:54)
[2024-03-22] MEDS: hydroCHLOROthiazide 12.5mg 12.5 MG PO (07:54)
[2024-03-22 07:55] VITALS: PULSE 70
[2024-03-22] MEDS: Losartan Potassium 25 MG Tablet PO (07:55)
[2024-03-22] MEDS: Timolol 0.5% 5ML OPTH.BTL 1 DRP OPHTHALMIC (07:55)
[2024-03-22] MEDS: Metoprolol(XL)Succ 25 MG Tablet PO (07:55)
--- NOTE | 2024-03-22 08:01 | PCM.PN.SRG ---
Subjective Subjective Patient evaluated resting comfortably in bed. He notes sore throat. He denies any nausea, vomiting, fever, numbness or tingling of the fingertips or hands. Objective Data Objective Data Vital Signs: Vital Signs Temp Pulse Resp BP Pulse Ox O2 Del Method O2 Flow Rate 97.9 F 70 18 140/61 H 93 Room Air 6 03/22/24 07:47 03/22/24 07:55 03/22/24 07:47 03/22/24 07:47 03/22/24 07:47 03/22/24 07:47 03/21/24 12:22 Oxygen Flow Rate (L/min) 6 Oxygen Delivery Method Room Air Weight: 181 lb Body Mass Index (BMI) 25.9 Intake & Output: Intake and Output for Last 24 Hours 03/20/24 03/21/24 03/22/24 23:59 23:59 23:59 Intake Total 1480 / 1480 120 / 120 Output Total 325 / 325 400 / 400 Balance 1155 / 1155 -280 / -280 Lab / Micro Data Labs: Laboratory Results - last 24 hr 03/21/24 11:25: PTH Intact 31.4 03/22/24 04:39: Calcium 8.8, Magnesium 2.0, PTH Intact 20.9 Physical Exam Neck Neck Narrative: Anterior neck- incision c/d/i. No erythema or infection noted. No ecchymosis. No tenderness. No active drainage noted. Assessment & Plan Assessment/Plan (1) Hyperthyroidism: (2) Graves disease: PLAN: Plan I am following this patient in conjunction with Dr. Bhatti. he has also indepdnently evaluated htis patient. Labs reviewed. No changes Patient recovering well Ready for discharge Charges/Coding Visit Charges Inpatient E&M: 63253 Subs Hosp L1 (Post-op; no charge)
--- NOTE | 2024-03-22 09:58 | PHA.DC_ITS ---
Pharmacy [facility] has performed discharge medication reconciliation and counseling for this patient. 1. CALCIUM/VITAMIN D 1T PO TIDCM 2. LEVOTHYROXINE 100MCG PO DAILY The patient's discharge medication list was reviewed for discrepancies and discrepancies were resolved. The patient was counseled on the following discharge medications and changes in medications for homegoing were reviewed. The Reason for Use, instructions for use, and potential side effects were reviewed for all new medications. The patient's questions regarding all of their medications were answered. The patient was able to verbally demonstrate an understanding of their discharge medications. Patient counseled by pharmacy benefit managerHumberto. Medications at Discharge Home Medications difluprednate 0.05 % eye drops 1 drp ophthalmic (eye) Q OTHER DAY 01/06/24 dorzolamide 2 % eye drops 1 drp ophthalmic (eye) Q OTHER DAY 01/06/24 doxycycline hyclate 50 mg capsule 50 mg PO QDAY 01/06/24 saw palm 50 mg-pyg 20 mg-nettl 25 mg-pump 100 [id number] capsule (Prostate Control) 1 cap PO DAILY 01/06/24 timolol maleate 0.5 % eye drops 1 drp ophthalmic (eye) BID 01/06/24 hydrochlorothiazide 12.5 mg tablet 12.5 mg PO QDAY #30 tabs 01/31/24 metoprolol succinate 25 mg tablet,extended release 24 hr 25 mg PO QDAY #30 tabs 01/31/24 losartan 25 mg tablet 25 mg PO QDAY #90 tabs 02/17/24 levothyroxine 100 mcg tablet 100 mcg PO QDAY #90 tabs 03/07/24 calcium 500 mg (as carbonate)-vitamin D3 5 mcg (200 unit) tablet (Oyster Shell Calcium-Vitamin D3) 1 tab PO TIDCM 18 days #54 tabs 03/22/24
== END 2024-03-22 09:52 | disposition home or self-care (01) ==
LOC: SDC 13:28 → MS3 13:28
PROVIDERS: Admitting Provider Surgery; PCP Family Medicine; Referring Provider Surgery; Visit Provider Surgery
PROC: (CPT 60240; principal; 2024-03-21 07:15)
DX: E05.00 Thyrotoxicosis with diffuse goiter without thyrotoxic crisis or storm (principal); Z87.891 Personal history of nicotine dependence; I10 Essential (primary) hypertension; E05.20 Thyrotoxicosis with toxic multinodular goiter without thyrotoxic crisis or storm; Z79.899 Other long term (current) drug therapy; R49.0 Dysphonia; K21.9 Gastro-esophageal reflux disease without esophagitis; N40.0 Benign prostatic hyperplasia without lower urinary tract symptoms; R13.10 Dysphagia, unspecified
CPT/HCPCS: 60240; 00320; 36415; 82310; 83735; 83970; 88307; 93005; 99221; J7120; G0378; J2405

== ENCOUNTER → 2024-05-08 | Outpatient (CLI) | payer MEDICARE, SELFPAY ==
[2024-05-08 10:21] LABS: Cholesterol 251 mg/dL (200); Free T3 2.3 pg/mL (2.18-3.98); High Density Lipoprotein 77 mg/dL; T4 Free Direct 1.37 ng/dL (0.76-1.46); Thyroid Stim Hormone (TSH) 0.217 uIU/mL (0.358-3.740); Triglycerides 104 mg/dL; Very Low Density Lipoprotein 21 mg/dL (5-40)
== END | disposition home or self-care (01) ==
LOC: LAB 08:52
PROVIDERS: Surgery; PCP Family Medicine; Referring Provider Nurse Practitioner Family; Visit Provider Nurse Practitioner Family
DX: E04.1 Nontoxic single thyroid nodule (principal); Z79.890 Hormone replacement therapy; E78.5 Hyperlipidemia, unspecified; Z90.89 Acquired absence of other organs
CPT/HCPCS: 36415; 80061; 84439; 84443; 84481

== ENCOUNTER → 2024-08-07 | Outpatient (CLI) | payer MEDICARE, SELFPAY | END | disposition home or self-care (01) | LOC: LAB 09:33 | PROVIDERS: PCP Family Medicine; Referring Provider Nurse Practitioner Family; Visit Provider Nurse Practitioner Family | DX: E03.9 Hypothyroidism, unspecified (principal) | CPT/HCPCS: 36415; 84439; 84443 ==

== ENCOUNTER → 2025-04-17 | Outpatient (CLI) | payer MEDICARE, SELFPAY | END | disposition home or self-care (01) | LOC: LAB 13:43 | PROVIDERS: PCP Family Medicine; Referring Provider Nurse Practitioner Family; Visit Provider Nurse Practitioner Family | DX: E03.9 Hypothyroidism, unspecified (principal) | CPT/HCPCS: 36415; 84439; 84443 ==